=== PATIENT | female | born 1950 | race Caucasian/White ===

== ENCOUNTER 2017-03-25 15:11 | Outpatient (CLI) | payer MEDICAID ==
[2017-03-25 19:24] LABS: BASOPHILS % (AUTO) 0.4 %; EOSINOPHILS % (AUTO) 1.8 %; HCT - HEMATOCRIT 43.3 % (37.0-47.0); HGB - HEMOGLOBIN 14.6 g/dL (12.0-16.0); LYMPHOCYTES % (AUTO) 41.2 %; MEAN CORPUSCULAR HEMOGLOBIN 32.1 pg (27.0-31.0); MEAN CORPUSCULAR HGB CONC 33.7 g/dL (32.0-36.0); MEAN CORPUSCULAR VOLUME 95.4 fL (81.0-99.0); MEAN PLATELET VOLUME 9.5 fL (7.9-10.8); MONOCYTES % (AUTO) 6.2 %; NEUTROPHILS % (AUTO) 50.4 %; RED BLOOD COUNT 4.55 10^6/uL (4.20-5.40); UNCORRECTED WHITE BLOOD COUNT 8.3 x10^3/uL; WHITE BLOOD COUNT 8.3 x10^3/uL (4.8-10.8)
[2017-03-25 19:35] LABS: BAND NEUTROPHILS % (MANUAL) 0 %
[2017-03-25 19:46] LABS: ALBUMIN/GLOBULIN RATIO 1.5 (1.0-2.2); BILIRUBIN,TOTAL 0.5 mg/dL (0.2-1.0); BUN - BLOOD UREA NITROGEN 15 mg/dL (6-20); CALCIUM 9.5 mg/dL (8.5-10.3); CARBON DIOXIDE - CO2 23 mmol/L (21-32); CHLORIDE 104 mmol/L (101-111); CREATININE 0.7 mg/dL (0.4-1.0); GFR - MDRD 84 (>89); GLUCOSE 137 mg/dL (70-100); IRON 69 ug/dL (28-170); POTASSIUM 3.8 mmol/L (3.5-5.0); SODIUM 137 mmol/L (135-145); TOTAL IRON BINDING CAPACITY 302 ug/dL (250-450); TOTAL PROTEIN 7.4 g/dL (6.7-8.2); TRANSFERRIN 216 mg/dL (192-382)
[2017-03-25 19:50] LABS: THYROID STIMULATING HORMONE 1.56 uIU/mL (0.34-5.60)
[2017-03-25 20:07] LABS: BASOPHILS % (MANUAL) 1 %; EOSINOPHILS % (MANUAL) 1 %; LYMPHOCYTES % (MANUAL) 38 %; NEUTROPHILS % (MANUAL) 51 %; NP AUTO DIFFERENTIAL? YES; NP MAN DIFFERENTIAL? NO; PLATELET ESTIMATE, MANUAL NORMAL (130-450,000) (NORMAL); PLATELET MORPHOLOGY NORMAL APPEARANCE (NORMAL); TOTAL CELLS COUNTED 100
== END 2017-03-25 15:12 | disposition home or self-care (01) ==
LOC: LAB.S 15:11
PROVIDERS: ATTEND Nurse Practitioner Family
DX: R53.83 Other fatigue (principal)
CPT/HCPCS: 36415; 80053; 82607; 83540; 84443; 84466; 85025

== ENCOUNTER 2017-10-09 08:00 | Outpatient (CLI) | payer MEDICARE, MEDICAID | END 2017-10-09 08:01 | disposition home or self-care (01) | LOC: LAB.R 08:00 | PROVIDERS: ATTEND Nurse Practitioner Family | DX: Z79.891 Long term (current) use of opiate analgesic (principal) | CPT/HCPCS: 80307; 81599; G0480; 80349; 80354; 80361; 80362; 80365 ==

== ENCOUNTER 2018-01-24 11:04 | Outpatient (CLI) | payer MEDICARE, MEDICAID ==
--- NOTE | 2018-01-24 12:36 | XRAY Report ---
Procedure Date: 01/24/2018 Accession Number: [id number] / [id number] Procedure: XRS - Chest 2 View X-Ray CPT Code: 53421 FULL RESULT: EXAM: Chest 2 View X-Ray DATE: 01/24/2018 11:29 AM CLINICAL HISTORY: COPD, ACUTE EXACERBATION COMPARISON: Chest CT 08/27/2014. TECHNIQUE: 2 views. FINDINGS: Lungs/Pleura: No focal opacities evident. No pneumothorax or pleural effusion. Lung volumes are similar to prior, top normal. Mediastinum: Heart and mediastinal contours are unremarkable. Other: None. IMPRESSION: Relatively high lung volumes in keeping with known emphysema, otherwise normal 2-view chest radiography. [facility]
== END 2018-01-24 11:05 | disposition home or self-care (01) ==
LOC: DI.S 11:04
PROVIDERS: ATTEND Nurse Practitioner Family
DX: J43.9 Emphysema, unspecified (principal)
CPT/HCPCS: 71046

== ENCOUNTER 2018-10-28 14:04 | Outpatient (CLI) | payer MEDICARE, MEDICAID ==
--- NOTE | 2018-10-29 10:42 | XRAY Report ---
Reason: PAIN AND EDEMA 2-3 MT'S LEFT FOOT Procedure Date: 10/28/2018 Accession Number: [id number] / [id number] Procedure: XR - Foot 3 View LT CPT Code: FULL RESULT: EXAM: LEFT FOOT RADIOGRAPHY EXAM DATE: 10/28/2018 02:22 PM. CLINICAL HISTORY: Pain and edema 2-3 metatarsals left foot. COMPARISON: None. TECHNIQUE: 3 views. FINDINGS: Bones: Mild inferior calcaneal spurring. There is an regularity over the medial sesamoid, region of the ball of the foot, possible sesamoid fracture. Joints: Normal. No subluxations. Soft Tissues: Normal. No soft tissue swelling. IMPRESSION: Question sesamoid fracture. RAD[facility]
== END 2018-10-28 14:05 | disposition home or self-care (01) ==
LOC: DI 14:04
PROVIDERS: ATTEND Podiatrist
DX: M79.672 Pain in left foot (principal)

== ENCOUNTER 2019-03-16 09:36 | Outpatient (CLI) | payer MEDICARE, MEDICAID ==
[2019-03-16 17:09] LABS: BASOPHILS # (AUTO) 0.1 10^3/uL (0.0-0.1); BASOPHILS % (AUTO) 0.7 %; EOSINOPHILS # (AUTO) 0.2 10^3/uL (0.0-0.7); EOSINOPHILS % (AUTO) 3.4 %; LYMPHOCYTES # (AUTO) 2.6 10^3/uL (1.5-3.5); MEAN CORPUSCULAR HGB CONC 33.2 g/dL (32.0-36.0); MEAN CORPUSCULAR VOLUME 96.3 fL (81.0-99.0); MEAN PLATELET VOLUME 11.8 fL (7.9-10.8); MONOCYTES # (AUTO) 0.6 10^3/uL (0.0-1.0); MONOCYTES % (AUTO) 8.1 %; NEUTROPHILS # (AUTO) 3.4 10^3/uL (1.5-6.6); NEUTROPHILS % (AUTO) 49.4 %; PLT - PLATELET COUNT 216 10^3/uL (130-450); RED BLOOD COUNT 4.38 10^6/uL (4.20-5.40); RED CELL DISTRIBUTION WIDTH 13.4 % (12.0-15.0); WHITE BLOOD COUNT 6.8 x10^3/uL (4.8-10.8)
[2019-03-16 17:34] LABS: ALBUMIN 4.4 g/dL (3.2-5.5); ALBUMIN/GLOBULIN RATIO 1.6 (1.0-2.2); ALKALINE PHOSPHATASE 66 IU/L (42-121); ALT ALANINE AMINOTRANSFERASE 25 IU/L (10-60); AST ASPARTATE AMINOTRANSFERASE 18 IU/L (10-42); BILIRUBIN,TOTAL 0.7 mg/dL (0.2-1.0); BUN - BLOOD UREA NITROGEN 12 mg/dL (6-20); CALCIUM 9.5 mg/dL (8.5-10.3); CARBON DIOXIDE - CO2 26 mmol/L (21-32); CHLORIDE 109 mmol/L (101-111); CHOL/HDL RATIO 3.8 (<4.4); CHOLESTEROL 183 mg/dL; CREATININE 0.6 mg/dL (0.4-1.0); GFR - MDRD 100 (>89); GLUCOSE 127 mg/dL (70-100); HDL CHOLESTEROL 48 mg/dL; LDL CHOLESTEROL,CALCULATED 118 mg/dL; LDL/HDL RATIO 2.5 (<4.4); SODIUM 141 mmol/L (135-145); TOTAL PROTEIN 7.1 g/dL (6.7-8.2); VLDL CHOLESTEROL 17 mg/dL
== END 2019-03-16 09:37 | disposition home or self-care (01) ==
LOC: LAB.S 09:36
PROVIDERS: ATTEND Physician Assistant Medical
DX: R09.02 Hypoxemia (principal); E78.5 Hyperlipidemia, unspecified; R53.83 Other fatigue
CPT/HCPCS: 36415; 80053; 80061; 83721; 84443; 85025

== ENCOUNTER 2019-05-21 12:53 | Outpatient (CLI) | payer MEDICARE, MEDICAID ==
[2019-05-21 15:13] VITALS: BP 164/90
--- NOTE | 2019-05-21 15:13 | SLEEP CARE CONSULTATION ---
Information from patient questionnaire entered by Gilma Masterson. I have reviewed and concur with the information entered by Gilma Masterson. This document represents the service I personally performed and the decisions made by me, Devorah Rodríguez, RN, MSN, CERTIFIED ADAPTED PHYSICAL EDUCATOR. History of Present Illness Reason for Visit: New patient Chief Complaint: reports: Unrefreshed sleep, Snoring, Observed pauses in breathing, Fatigue, Frequent awakenings at night, Other (Overnight pulse oximetry showed 50 minutes of [id number] under 88% / she wore oxygen at night for a while but did not qualify for insurance coverage) Duration of Symptoms: At least 5 years and has progressively gotten worse Usual bedtime: 11 pm Time it takes to fall asleep: 1 hour Snores at night: Yes (loudly) Observed to quit breathing while asleep: Yes Sleeps alone due to snoring: No Number of times waking at night: 8 Reasons for waking at night: reports: Gasping for air, Pain, Bathroom, Other (acid reflex , shortness of breath from her COPD) Toss, Turn, or Twitch while sleeping: Yes Recalls having dreams: Yes Usually gets out of bed at: 8-9 am Feels refreshed in the morning: No Morning headache: No Sleepy or fatigued during the day: Yes Ever fallen asleep while driving: No Takes day naps: Yes (2-3 times a week for 1 -1.5 hours - about 1pm) Dreams during day naps: Yes Prior sleep studies: No - Parasomnia Symptoms Ever been unable to move upon waking from sleep: No Walks in sleep: No Talks in sleep: Yes Ever acted out dreams in sleep: No Ever felt weak in the knees when startled or emotional: No Bothered by creepy, crawly, restless sensations in legs: No Problems with memory or concentration: Yes Subjective Initial [place] Sleepiness Scale score: 16 Past Medical History Past Medical History: reports: Hypertension, Dysphagia, Arthritis, Asthma, Emphysema, GERD, Other (Back and hip pain with sciatica and degenerative joint disease. ) Social History The patient's occupation is retired. Patient is and lives in [place]. Have you smoked in the past 12 months: No Cigarettes per day (20/pack): 30 Years of smokin Quit date: 1 year ago Smoking Pack Years: 60.0 Alcohol use: Yes Alcohol amount and frequency: 1-2 drinks every 3 months or so Caffeine use: Yes Caffeine amount and frequency: 2 12 ounce Cokes or Teas Family History Family history of sleep disordered breathing: Yes Family Hx Sleep Apnea: Father: Snoring Allergies and Home Medications Known drug allergies: No Home medication list reviewed: Yes Allergy and home medication list: Potassium CL ER 20meq tid Nifedipine 60mg daily HCTZ 12.5mg daily Ventolin Inhaler rescue inhaler Breo Inhaler 100mg / 25mcg 1 puff daily Albuterol Nebulizer 4 times a day ( every 4-6 hours) but generally only 3 times Vitamin [id number] mg daily Hydrocodone 7.5mg bid prn Review of Systems Weight gain over past 5 years: 40 Weight loss over past 5 years: 40 Cardiovascular: reports: high blood pressure, have to sleep sitting up (2 - 3 pillows in bed) Respiratory: reports: shortness of breath (most of time - partially relieved with nebulizer ), wheeze (most of time), sputum production (daily ), chronic cough Gastrointestinal: reports: heartburn (occasionally and relieved with Tums ) Urinary: reports: incontinence (stress), frequency Neurological: reports: gait or balance problems (back pain / unknown reason 5 years ) Ear/Nose/Throat: reports: nasal congestion (chronic), dry mouth/throat (mostly at night), hoarseness (intermittent ), tonsillectomy, wisdom teeth removed Endocrine: reports: sluggishness, increased urination, unexplained weakness Musculoskeletal: reports: joint pain, back pain, muscle pain or cramping, mobility problems (back / sciatica ) Immunologic: reports: sneezing (chronic ) Physical Exam Blood Pressure: 164/90 Cuff size: long Heart Rate: 70 O2 Saturation: 98 Height: 5 ft 4.75 in Weight: 280 lb Body Mass Index: 46.9 BMI Classification: Obesity Class 3 Neck circumference: 16.5 HEENT: No craniofacial malformation Nostrils: partially obstructed Turbinates: swollen Septum: deviated right Mouth and throat: narrow oropharynx Soft palate: long Hard palate: normal Uvula: edematous Uvula visualization: 25% Mallampati Class III Tongue: enlarged in size with teeth patrick on lateral edges Tonsils: absent bilaterally Chin and jaw: normal size and position Neck: normal w/o lymphadenopathy or thyromegaly Heart: regular rate and rhythm, irregular rhythm Lungs: wheeze (expiratory wheeze all 4 quadrants) Abdomen: soft, non-tender Extremities: 1+ edema (ankle) Neurologic: no focal deficits Impression and Plan 1. Suspected Obstructive Sleep Apnea-Hypopnea Syndrome, as suggested by a history of loud and irregular snoring, observed cessation of breath while asleep, gasping or choking in sleep, frequent awakening during the night, unrefreshed sleep, cognitive impairment, and excessive daytime sleepiness. Patient was also noted to have nocturnal hypoxia with an overnight pulse oximetry showing oxygen saturation of below 88% for about 50 minutes. Apnea could be a cause of her hypoxemia. Narrow oropharynx and obesity are common predisposing factors for obstructive sleep apnea-hypopnea syndrome. Essential hypertension can be caused by untreated apnea. In addition, nocturnal reflux can be exacerbated by untreated apnea. I recommend proceeding to polysomnography to confirm the diagnosis and to assess severity. If the patient has significant sleep disordered breathing, a manual CPAP titration study will also be performed to find the optimal treatment pressure. I informed the patient of what the sleep studies involve and after some discussion, obtained agreement to proceed. I informed her that if she has significant apnea, a split polysomnography will be performed. I explained that if her hypoxia is not corrected by apnea treatment then she may require oxygen supplementation. A manual titration study will determine that need. The pathophysiology of obstructive sleep apnea- hypopnea syndrome was discussed with the patient and health risks of cardiovascular and cerebrovascular disease if not treated. AAS brochure for obstructive sleep apnea-hypopnea syndrome given and reviewed. Risks of drowsy driving discussed in detail and patient advised to avoid long distance driving and to harness puller at the first sign of drowsiness. Patient agreed to plan. 2. Elevated blood pressure, Patient monitors at home- generally 140-130 / 80 -84 but has been elevated intermittently such as today in a new office visit. Advised to retake her blood pressure when home and contact her PCP if continues to be elevated for further evaluation and possible medication adjustment. Urgent guidelines reviewed for follow up if systolic 180 or above and diastolic 100 or above. Patient voiced understanding and agreed with plan. 3. intermittent feeling of imbalance and states she is careful in movements. This has been going of for about 5 years. Patient has not discussed her symptoms with any of her providers and was encouraged to do so for further evaluation to determine cause as it could be related to other medical conditions. Patient agreed with plan. * Schedule split polysomnography / manual CPAP titration study if meets protocol otherwise just polysomnography. * Avoid long distance driving or driving when feeling sleepy. * Avoid alcohol, sedative and muscle relaxant around bedtime. * Attempt to lose weight. * Review instructions provided by trained office staff on how to prepare for the sleep study. * Return for follow-up after sleep study completed to review results and initiate treatment if indicated. I spent 100% of this 45 minute visit face to face with the patient with greater than 50% of this was spent time counseling the patient and coordination of care.
== END 2019-05-21 12:54 | disposition home or self-care (01) ==
LOC: SC 12:53
PROVIDERS: ATTEND Nurse Practitioner Family
DX: G47.10 Hypersomnia, unspecified (principal); R06.81 Apnea, not elsewhere classified; G47.8 Other sleep disorders; R41.89 Other symptoms and signs involving cognitive functions and awareness; R09.02 Hypoxemia; R06.83 Snoring
CPT/HCPCS: 99204; G0463; 99212

== ENCOUNTER 2019-06-15 19:29 | Outpatient (CLI) | payer MEDICARE, MEDICAID | END 2019-06-15 19:30 | disposition home or self-care (01) | LOC: SC 19:29 | PROVIDERS: ATTEND Internal Medicine Pulmonary Disease | DX: G47.33 Obstructive sleep apnea (adult) (pediatric) (principal); G47.61 Periodic limb movement disorder; E66.01 Morbid (severe) obesity due to excess calories; Z68.42 Body mass index [BMI] 45.0-49.9, adult | CPT/HCPCS: 95810 ==

== ENCOUNTER 2019-07-14 15:08 | Outpatient (CLI) | payer MEDICARE, MEDICAID ==
[2019-07-14 16:15] VITALS: BP 180/100
--- NOTE | 2019-07-14 16:15 | SLEEP CARE CONSULTATION ---
Information from patient questionnaire entered by Gilma Masterson. I have reviewed and concur with the information entered by Gilma Masterson. This document represents the service I personally performed and the decisions made by me, Devorah Rdoríguez, RN, MSN, PLATE PAINTER APPRENTICE. History of Present Illness Initial [place] Sleepiness Scale score: 16 Current [place] Sleepiness Scale score: 7 Additional HPI information: NANI MELO returns for follow up and results of the recently performed polysomnography. I explained the pathophysiology behind obstructive sleep apnea. We then spent quite a bit of time discussing different treatment options. For mild obstructive sleep apnea, surgery and oral appliance are alternatives to nasal CPAP therapy but in moderate or severe cases, nasal CPAP is the most effective and reliable treatment. I reviewed the impact of weight changes on sleep apnea and strongly recommended losing weight. After some discussion, the patient opted to go with the nasal CPAP therapy. Nasal autoCPAP set at [id number] will be ordered with rationale explained. A manual titration study will be ordered if unable to find optimal pressure with office adjustments to find optimal treatment mode and setting. An urgent set up will be ordered due to apnea severity and moderate hypoxia. I explained how CPAP machine works with sample devices RespirUrban Airship Dreamstation and ResN-of-One [id number] and what to expect when using the machine. Using CPAP every night in order to get used to it was emphasized. Patient advised to put CPAP mask on before getting into bed so as not to fall asleep without CPAP. To assist acclimation to CPAP use, it could also be used for a short time during day while reading or watching TV. The patient was instructed to call the CPAP supplier to discuss any mechanical problem that may occur. If the mask given is uncomfortable or is difficult to keep on through the night even with adjustment, contact the CPAP supplier as many will replace with another mask style if notified before 30 days. If snoring or perceives is not getting enough air or too much air from the machine, notify this office. [facility] patient education PAP tips and given to patient. Patient counseled not drink alcohol less than 4 hours before bedtime as it can increase snoring and apnea. Patient was cautioned about risks of drowsy driving until sleepiness symptoms resolve. Patient denies drowsy driving. [facility] patient education on snoring and sleep apnea given and reviewed. Sleep Study - Results Polysomnography/Home Sleep Study results: The quality of the study is good. The patient had reduced sleep efficiency due to sleep onset insomnia and two prolonged awakenings during the night. The sleep architecture was abnormal for sleep fragmentation and reduced amount of time spent in REM and slow wave sleep (N3). Respiratory monitoring showed very severe obstructive sleep apnea-hypopnea (AHI = 78.4) associated with frequent arousals, oxyhemoglobin desaturation and moderate hypoxia (gordo oxygen saturation of 74%). Baseline oxygen saturation was normal. The respiratory events occurred independently of sleep stage and body position (supine AHI = 87.8; non-supine = 44.29). Snore was loud in intensity. There was mild periodic leg movement of sleep not contributing to the sleep fragmentation. Cardiac rhythm was normal sinus rhythm with occasional premature ventricular contractions. No abnormal behavior (parasomnia) observed during the night. Allergies and Home Medications Known drug allergies: No Home medication list reviewed: Yes (no changes from initial visit) Review of Systems Review of systems same as previous: Yes (followed up with PCP re blood pressure as advised) Physical Exam Blood Pressure: 180/100 (both arms, 170/90 retaken at end of visit at wrist ) Cuff size: long (needs longer cuff for better fit) Heart Rate: 82 O2 Saturation: 97 Height: 5 ft 4.75 in Weight: 284 lb 9.6 oz Weight change since last visit: gained 5 pounds Body Mass Index: 47.7 BMI Classification: Obesity Class 3 Impression and Plan 1. Obstructive Sleep Apnea-Hypopnea Syndrome, very severe, with lowest oxygen saturation of 74%. Obviously this is the cause of the patients symptoms of unrefreshed sleep, and excessive daytime sleepiness. Positive pressure therapy could benefit her hypertension and asthma. As mentioned above, the patient will be started on nasal autoCPAP therapy with pressure set at 4-15 cmH2O. A manual titration study will be completed if unable to find optimal treatment pressure with office adjustments. Compliance guidelines also reviewed. A copy of compliance guidelines will be given for reference at check out. Because the apnea is more severe supine, I instructed to avoid sleeping supine using pillow positioning until able to start CPAP use. 2. Elevated blood pressure. As noted at beginning of visit blood pressure reading 180/100 both arms. Cuff length long but could be longer for better fit. Patient states she had a level 4 of 10 pain of back, hip and legs. Patient is monitoring at home as advised and followed up with her PCP. At home, blood pressure running 152/80-86. At end of visit, Blood pressure retaken and 170/90 taken at wrist for better fitting cuff. Patient advised to retake at home and contact PCP if continues to be elevated. Patient again reviewed guidelines for u rgent follow up. 911 card guidelines given. Patient agreed with plan. * Nasal auto CPAP therapy, pressure at 4-15 cm H2O. * Attempt to lose weight. * Avoid alcohol consumption near bedtime. * Avoid supine sleep until using CPAP. * Follow up with PCP re elevated blood pressure as discussed. * The patient is again cautioned about driving until sleepiness completely resolves. * Return one month after CPAP obtained. I will assess response to therapy and compliance at that time. Time Spent with Patient (minutes): 40 I spent 100% of this visit face to face with the patient with greater than 50% of this was spent time counseling the patient and coordination of care.
== END 2019-07-14 15:09 | disposition home or self-care (01) ==
LOC: SC 15:08
PROVIDERS: ATTEND Nurse Practitioner Family
DX: G47.33 Obstructive sleep apnea (adult) (pediatric) (principal); R03.0 Elevated blood-pressure reading, without diagnosis of hypertension; E66.9 Obesity, unspecified; Z68.42 Body mass index [BMI] 45.0-49.9, adult
CPT/HCPCS: 99215; G0463; 99212

== ENCOUNTER 2019-10-22 16:31 | Outpatient (CLI) | payer MEDICARE, MEDICAID ==
--- NOTE | 2019-10-22 15:29 | SLEEP CARE CONSULTATION ---
Information from patient questionnaire entered by Margret Gonzalez. I have reviewed and concur with the information entered by Margret Gonzalez. This document represents the service I personally performed and the decisions made by me, Devorah Rodríguez, RN, MSN, DIRECTOR OF [facility]. History of Present Illness Service Date and Time: 10/22/2019 1631 Previous diagnosis: Very Severe, Obstructive Sleep Apnea-Hypopnea Syndrome AHI: 78.4 Reason for follow up: first compliance Equipment type: CPAP Equipment obtained from: [facility] Mask style: Full face Backup mask available: No (keep current mask when replaced for spare ) Last cushion change: not since set up Prior sleep studies: Yes Type of Sleep Study: Polysomnography CPAP Compliance Data - Data Reviewed with Patient Average duration of nightly device use: 5H 49M Compliance rate %: 70 Current pressure setting (cmH2O): 4-15 Humidity settin Heated hose settin Average residual AHI: 5.3 Central apnea: 1.0 Obstructive apnea: 1.7 Hypopnea: 3.6 Average large leak: 1M 3S Subjective Missed days of use due to: reports: other (when COPD exacerbates) Patient concerns: reports: mask leak noise (occasionally). denies: aerophagia, mask discomfort, air blowing in eyes, condensation in mask/hose, nasal congestion, dry mouth, nose, throat, epistaxis, other Observed to snore while using device: Yes (mild) Current pressure setting perceived as: comfortable On therapy, patient: reports: sleeping better (able sleep longer periods ), awakening more refreshed, being more awake and alert during the day, more rested overall. denies: drowsiness while driving, other Initial [place] Sleepiness Scale score: 16 Physical Exam Height: 5 ft 4.75 in Impression and Plan 1. Obstructive Sleep Apnea-Hypopnea Syndrome, very severe, with good treatment compliance and slightly elevated residual AHI apnea control. On CPAP therapy, the patient has better sleep quality and is more rested overall. Missed days of use are due to exacerbation of COPD and she reports she is contacting her PCP for treatment as indicated. The patients pressure will be changed to autoCPAP 12-16 cmH20 For elevation of residual AHI. Patient advised to contact me if pressure change is uncomfortable so that it can be adjusted. Goals for apnea control discussed. I will also have her DME remind her of use of ramp feature. To reduce condensation, she is to increase the heated hose. If further problems, she can contact Lauren PATTERSON. Patient's apnea severity and rationale for treatment to reduce apnea, improve sleep quality and reduce cardiovascular and cerebrovascular events was reviewed. I also reviewed the benefit of regularly changing her mask cushion to maintain fit and comfort of mask. * * Change CPAP pressure to 12-16 cmH2O * instruct in use of ramp feature * Notify me if snoring with mask or feeling that the pressure is too much or too little * Adjust heated hose for condensation * Call this office if any problems using CPAP * Return for follow up in 1-2 months , or sooner if concerns arise Visit Type: Telehealth Phone (to minimize the risk of COVID -19 exposure, the patient has agreed to telehealth visit and to bill insurance.) Patient agrees and consents to this telehealth visit type: Yes Time Spent with Patient (minutes): 10 Provider Statement: I spent 100% of the Telehealth Phone Call with the patient with greater than 50% spent counseling the patient and coordination of care.
== END 2019-10-22 16:32 | disposition home or self-care (01) ==
LOC: SC 16:31
PROVIDERS: ATTEND Nurse Practitioner Family
DX: G47.33 Obstructive sleep apnea (adult) (pediatric) (principal)

== ENCOUNTER 2020-01-04 15:03 | Emergency (ER) | payer MEDICARE, MEDICAID ==
--- NOTE | 2020-01-04 15:47 | XRAY Report ---
PROCEDURE: Chest 2 View X-Ray INDICATIONS: short of breath TECHNIQUE: 2 view(s) of the chest. COMPARISON: None. FINDINGS: Surgical changes and devices: None. Lungs and pleura: No pleural effusions or pneumothorax. Lungs are clear. Mediastinum: Mediastinal contours are normal. Heart size is normal. Bones and chest wall: No suspicious bony abnormalities. Soft tissues appear unremarkable. IMPRESSION: No acute disease Reviewed by: Juan Nava MD on 01/04/2020 3:46 PM PDT Approved by: Juan Nava MD on 01/04/2020 3:46 PM PDT Station ID: [id number]
[2020-01-04 15:53] VITALS: BP 134/97
[2020-01-04] MEDS ORDERED: IPRATROPIUM/ALBUTEROL 3 ML NEB INH STA (15:59)
[2020-01-04] MEDS ORDERED: predniSONE 20 MG TABLET PO STA (15:59)
[2020-01-04] MEDS ORDERED: ALBUTEROL NEB 2.5 MG/3 ML INH STA (15:59)
--- NOTE | 2020-01-04 16:00 | ED Physician Documentation ---
PD HPI DYSPNEA - Stated complaint Stated Complaint: SOA - Chief complaint Chief Complaint: Resp - History obtained from History obtained from: Patient - Additional information Additional information: 69-year-old woman with emphysema presents with what she feels like is 1 of her flares of same. She has been sick for about 8 days with an increasingly productive cough and shortness of breath. She is been using her neb 4 times a day and just finished a course of steroids at a dose of 40 mg a day. Was referred from her doctor's office for concern for pneumonia. Review of Systems Constitutional: reports: Reviewed and negative Throat: reports: Reviewed and negative Cardiac: reports: Reviewed and negative Respiratory: reports: Dyspnea, Cough PD PAST MEDICAL HISTORY - Present Medications Home Medications: Ambulatory Orders Medication Instructions Recorded Confirmed Albuterol 1 neb IN Q4HR PRN 01/04/20 01/04/20 Albuterol Sulf [Ventolin Hfa 2 puffs INH Q4HR PRN 01/04/20 01/04/20 Inhaler] Amoxicillin 500 mg PO TID #30 capsule 01/04/20 Cholecalciferol (Vitamin D3) 1,000 unit PO DAILY 01/04/20 01/04/20 [Vitamin D3] Fluticasone/Vilanterol [Breo 1 each IH DAILY 01/04/20 01/04/20 Ellipta 100-25 Mcg INH] Hydrochlorothiazide 12.5 mg ORAL DAILY 01/04/20 01/04/20 Hydrocodone/Acetaminophen [Sewaren 1 each PO BID 01/04/20 01/04/20 7.5-325 Tablet] NIFEdipine [Nifedipine ER] 60 mg PO DAILY 01/04/20 01/04/20 Potassium Chloride [K-Dur] 20 meq PO TID 01/04/20 01/04/20 predniSONE [Deltasone] 20 mg PO [id number] #21 tab 01/04/20 - Allergies Allergies/Adverse Reactions: Allergies Allergy/AdvReac Type Severity Reaction Status Date / Time No Known Drug Allergies Allergy Verified 01/04/20 15:19 PD ED PE NORMAL - Vitals Vital signs reviewed: Yes - General General: Alert and oriented X 3, No acute distress - Cardiac Cardiac: RRR, No murmur - Respiratory Respiratory: Other (Rhonchorous and wheezy throughout, speaking in full sentences but she is minimally labored.) - Abdomen Abdomen: Non tender - Extremities Extremities: No edema, No calf tenderness / cord - Neuro Neuro: Alert and oriented X 3, Normal speech Results - Vitals Vitals: Vital Signs - 24 hr 01/04/20 01/04/20 01/04/20 15:15 15:52 16:14 Temperature 36.6 C 36.8 C Heart Rate 88 92 88 Respiratory 26 H 24 16 Rate Blood Pressure 154/86 H 134/97 H O2 Saturation 96 97 Oxygen O2 Source Room air - Rads (name of study) 1v chest Radiology: EMP read contemporaneously (nad) PD MEDICAL DECISION MAKING - ED course ED course: 69-year-old woman presents with COPD exacerbation, ACS and PE are considered but given the clinical findings very low suspicion for same. Not much change after triple neb here but remained nonlabored we will up her steroids and start some antibiotics for the productive cough. She did not want to be admitted. Departure - Departure Disposition: Home, Self Care Clinical Impression: Moderate COPD (chronic obstructive pulmonary disease) Condition: Good Record reviewed to determine appropriate education?: Yes Instructions: COPD Dc Prescriptions: Amoxicillin 500 mg PO TID #30 capsule predniSONE [Deltasone] 20 mg PO [id number] #21 tab Comments: Prescriptions were sent electronically to [facility] in [place]. Return for new or worsening symptoms. Continue routine meds at home. Follow-up with your doctor midweek for recheck.
[2020-01-04] MEDS ORDERED: AMOXICILLIN 250 MG CAPSULE PO STA (16:56)
== END 2020-01-04 17:04 | disposition home or self-care (01) ==
LOC: ED 15:03
DX: J43.9 Emphysema, unspecified (principal)
CPT/HCPCS: 71046; 94640; 99283; 99284; A9270; J7512

== ENCOUNTER 2020-01-13 12:32 | Outpatient (CLI) | payer MEDICARE, MEDICAID ==
--- NOTE | 2020-01-13 13:35 | SLEEP CARE CONSULTATION ---
Information from patient questionnaire entered by Margret Gonzalez. I have reviewed and concur with the information entered by Margret Gonzalez. This document represents the service I personally performed and the decisions made by me, Devorah Rodríguez, RN, MSN, ELECTRICAL AND INSTRUMENT TECHNICIAN. History of Present Illness Service Date and Time: 01/13/2020 1232 Previous diagnosis: Very Severe, Obstructive Sleep Apnea-Hypopnea Syndrome AHI: 78.4 Reason for follow up: other (2 month) Equipment type: CPAP Equipment obtained from: [facility] (getting supplies as needed) Mask style: Full face Backup mask available: No (keep current mask when replaced for a spare) Last cushion change: 2 weeks Prior sleep studies: Yes Year and Where: [facility] 2018 Type of Sleep Study: Polysomnography CPAP Compliance Data - Data Reviewed with Patient Average duration of nightly device use: 5h 46m Compliance rate %: 66.7 (30 days is 56.7%) Current pressure setting (cmH2O): 12-16 Humidity settin Heated hose settin Average residual AHI: 3.4 Average large leak: 27s Subjective Missed days of use due to: reports: illness (exacerbation of COPD ) Patient concerns: reports: aerophagia (no distention but waking to burping about 0-1 times a week since pressure change), mask leak noise (most nights), condensation in mask/hose (small amount of ? drool most mornings ), nasal congestion (chronic ), dry mouth, nose, throat (moderate to severe dry mouth and throat every night). denies: mask discomfort, air blowing in eyes, epistaxis Observed to snore while using device: No Current pressure setting perceived as: comfortable On therapy, patient: reports: sleeping better. denies: drowsiness while driving Initial [place] Sleepiness Scale score: 16 Allergies and Home Medications Known drug allergies: No Home medication list reviewed: No (Prednisone and amoxicillin added for 10 days) Review of Systems Review of systems same as previous: No Physical Exam Blood Pressure: 142/90 Cuff size: large Heart Rate: 72 O2 Saturation: 97 Height: 5 ft 4.75 in Weight: 281 lb (gained weight with prednisone course) Weight change since last visit: gained 7 pounds Body Mass Index: 47.1 BMI Classification: Morbidly Obese Impression and Plan 1. Obstructive Sleep Apnea-Hypopnea Syndrome, very severe, with fair treatment compliance and good apnea control. Compliance fell due to recent exacerbation of her COPD making it difficult to use her CPAP. On CPAP therapy, the patient has better sleep quality. To reduce symptoms of aerophagia, the CPAP pressure will be reduced to 12-14 cmH2O. Patient advised to contact me if this does not reduce symptoms or if pressure change uncomfortable. Oral dryness can cause drooling and can be reduced by adjusting humidity setting higher or heated hose lower or by adjusting both settings. I advised her to start with higher humidity to 4 and lower the heated hose to 2. Verbal instructions given on how to change humidity and heated hose settings with rationale explaining why to change. Patient advised that chronic oral dryness can affect dental health and advised to follow up with dentist. In addition, there are oral dryness products that can be used to reduce dryness. Patient to discuss best option with dentist. Mask leaks can be reduced by adjusting mask headgear slightly. She is already washing mask daily and changing cushions regularly. Nasal congestion is generally no problem per patient. If worse, it can be reduced with increasing the CPAP humidity as shown on sample device. The heated hose can be adjusted higher if condensation with higher humidity setting. Saline nasal spray can also be used prior to CPAP to clear nasal secretions and wash off any nasal allergens to facilitate nasal breathing. In addition, a steamy shower before bed will often assist nasal drainage. Patient has gained weight with recent course of prednisone, she plans on losing weight after course completed. Patient's apnea severity and rationale for treatment to reduce apnea, improve sleep quality and reduce cardiovascular and cerebrovascular events was reviewed. Patient asked about her oxygen saturation as was low on her sleep study. I later reviewed her sleep study as my computer froze at end of this visit. It showed she had moderate hypoxia but only with apnea, her baseline was in normal range. I will contact patient and inform. * * Change auto CPAP pressure to 10-14 cmH2O * Notify me if snoring with mask or feeling that the pressure is too much or too little * Implement methods to reduce oral dryness and mask leaks. * Attempt to lose weight * Call this office if any problems using CPAP * Return for follow up in 1-2 months , or sooner if concerns arise Visit Type: In Office Provider Statement: I spent 100% of the Face to Face Visit with the patient with greater than 50% spent counseling the patient and coordination of care.
[2020-01-13 13:59] VITALS: BP 142/90
== END 2020-01-13 12:33 | disposition home or self-care (01) ==
LOC: SC 12:32
PROVIDERS: ATTEND Nurse Practitioner Family
DX: G47.33 Obstructive sleep apnea (adult) (pediatric) (principal); E66.01 Morbid (severe) obesity due to excess calories; Z68.42 Body mass index [BMI] 45.0-49.9, adult
CPT/HCPCS: 99214; G0463; 99212

== ENCOUNTER 2020-03-31 13:14 | Outpatient (CLI) | payer MEDICARE, MEDICAID ==
[2020-03-31 14:25] VITALS: BP 140/90
--- NOTE | 2020-03-31 14:25 | SLEEP CARE CONSULTATION ---
Information from patient questionnaire entered by Gilma Masterson. I have reviewed and concur with the information entered by Gilma Masterson. This document represents the service I personally performed and the decisions made by me, Devorah Rodríguez, RN, MSN, BUILD AND RELEASE MANAGER. History of Present Illness Service Date and Time: 03/31/2020 1314 Previous diagnosis: Very Severe, Obstructive Sleep Apnea-Hypopnea Syndrome AHI: 78.4 (in 2019) Reason for follow up: other (2 month ) Equipment type: CPAP Equipment obtained from: [facility] (getting supplies as needed) Mask style: Full face Backup mask available: Yes (old mask cushion / to save headgear when replaced also as spare) Last cushion change: 2-3 weeks ago Prior sleep studies: Yes Year and Where: 2019 - [facility] Type of Sleep Study: Polysomnography HPI additional information: aerophagia resolved with reduction in CPAP pressure range Drooling is less with change in humidity and heated hose nasal congestion is also better Sleep Study - Results Prior sleep studies: Yes Year and Where: [facility] 2019 CPAP Compliance Data - Data Reviewed with Patient Average duration of nightly device use: 6.95 Compliance rate %: 76.7 Current pressure setting (cmH2O): 10-14 Humidity settin Heated hose settin Average residual AHI: 6.1 Central apnea: 0.1 Obstructive apnea: 3.4 Hypopnea: 2.6 Average large leak: 13 sec Subjective Missed days of use due to: reports: illness (exacerbation of COPD - uses nebulizers / inhalers ) Patient concerns: reports: mask leak noise (occasional ), nasal congestion (minimal), epistaxis. denies: aerophagia, mask discomfort, air blowing in eyes, condensation in mask/hose, dry mouth, nose, throat Observed to snore while using device: No Current pressure setting perceived as: comfortable On therapy, patient: reports: sleeping better, awakening more refreshed, being more awake and alert during the day, more rested overall. denies: drowsiness while driving Initial [place] Sleepiness Scale score: 16 (in 2019) Current [place] Sleepiness Scale score: 3 Allergies and Home Medications Known drug allergies: No Home medication list reviewed: No (Added gabapentin 600mg bid, metacarbol 1550mg tid) Review of Systems Review of systems same as previous: No (excerbation of back pain - referral to pain specialist / accupuncture) Physical Exam Blood Pressure: 140/90 Cuff size: wrist Heart Rate: 54 O2 Saturation: 98 Height: 5 ft 6 in Weight: 286 lb 9.6 oz Body Mass Index: 46.2 BMI Classification: Morbidly Obese Impression and Plan 1. Obstructive Sleep Apnea-Hypopnea Syndrome, very severe , with good treatment compliance and mild elevation of residual AHI. On CPAP therapy, the patient has better sleep quality and is more rested overall. Her aerophagia has resolved with pressure reduction and only mild residual AHI so I will not change pressure further. She has also increased her compliance from 56% to 76% since reduction of pressure. Her drooling is less with adjustment of heated hose and humidity. She was counseled to use her nebulizer as prescribed to reduce incidence of COPD exacerbation and consider pulmonary consult ias advised by PCP so she can reduce missed use of her CPAP since her apnea is so severe. In addition, she is encouraged to discuss a diet consultation with her PCP for weight loss as she reports her weight has increased her back pain and breathing difficulty and her own attempts have not worked. Patient has instead gained weight. Currently patients BMI is 44.2 obesity class. In addition, obesity increases the risk of apnea, CPAP pressure requirements and overall health risks especially cardiovascular and diabetes. The patient's CPAP pressure range should accommodate some weight loss. Symptoms to report for additional pressure adjustment discussed. Patient's apnea severity and rationale for treatment to reduce apnea, improve sleep quality and reduce cardiovascular and cerebrovascular events was reviewed. I also reviewed the benefit of consistent device use of CPAP for hypertension and COPD. * Continue auto CPAP pressure at 10-14 cmH2O * Notify me if snoring with mask or feeling that the pressure is too much or too little * Attempt to lose weight * Follow up with PCP for air brush operator referral * Call this office if any problems using CPAP * Return for follow up in 6 months , or sooner if concerns arise Visit Type: In Office Time Spent with Patient (minutes): 30 Provider Statement: I spent 100% of the Face to Face Visit with the patient with greater than 50% spent counseling the patient and coordination of care.
== END 2020-03-31 13:15 | disposition home or self-care (01) ==
LOC: SC 13:14
PROVIDERS: ATTEND Nurse Practitioner Family
DX: G47.33 Obstructive sleep apnea (adult) (pediatric) (principal); E66.01 Morbid (severe) obesity due to excess calories; Z68.42 Body mass index [BMI] 45.0-49.9, adult
CPT/HCPCS: 99214; G0463; 99212

== ENCOUNTER 2020-04-14 12:35 | Outpatient (CLI) | payer MEDICARE, MEDICAID ==
--- NOTE | 2020-04-14 14:13 | MRI Report ---
PROCEDURE: Lumbar Spine W/O INDICATIONS: LUMBAR BACK PAIN WITH RADICULOPATHY TECHNIQUE: Noncontrast sagittal T1 spin echo and T2 fast echo, sagittal STIR, axial T1 and T2 fast spin echo thr ough the lumbar spine. In cases with scoliosis, additional coronal T2 fast spin echo may be performe d. COMPARISON: None. FINDINGS: Image quality: Excellent. Alignment and Curvature: Straightening of the usual lumbar lordosis. Otherwise normal alignment. Vert ebral body heights maintained. Bone Marrow: Discogenic marrow signal change at the opposing endplates at L1-L2, L2-L3, and L5-S1. Th isidro signal changes are mildly edematous at the L2-L3 level. No suspicious focal marrow signal abnorma lity. Spinal Cord: Normal position and appearance of the conus. Visualized portion of the distal cord is no rmal. Regional Soft Tissues: Prevertebral and paraspinous soft tissues are unremarkable. Partially visualiz ed retroperitoneal visceral structures demonstrate no acute finding. T12-L1: No spinal canal or neural foraminal stenosis. L1-L2: No spinal canal or neural foraminal stenosis. L2-L3: Disc bulge flattens the ventral thecal sac with disc material closely approximating and per haps slightly displacing the descending L3 nerve roots within both subarticular zones. Foraminal comp onents of the disc bulge. Mild neural foraminal stenosis bilaterally. L3-L4: Disc bulge and protrusion flattening the ventral thecal sac without mass effect upon the tra versing L4 nerve roots. Foraminal components of the disc bulge. Mild bilateral neural foraminal steno sis. L4-L5: Residual disc bulge without mass effect on traversing nerve roots or spinal canal stenosis. Fo raminal component to the disc bulge injury to mild left greater than right neural foraminal stenosis. L5-S1: Diffuse disc bulge without mass effect upon the traversing S1 nerve roots. Foraminal compone nts with disc bulge. Moderate bilateral neural foraminal stenosis in conjunction with disc height los s and facet hypertrophy. IMPRESSION: Multilevel multifactorial degenerative changes. Spinal canal stenosis is most pronounced at L2-L3 whe re there is suspected mild mass effect upon the L3 nerve roots. Neural foraminal stenosis is worst at L5-S1 (moderate). Reviewed by: Ramesh Camarillo MD on 04/14/2020 2:12 PM PDT Approved by: Ramesh Camarillo MD on 04/14/2020 2:12 PM PDT Station ID: [id number]
== END 2020-04-14 12:36 | disposition home or self-care (01) ==
LOC: DI 12:35
PROVIDERS: ATTEND Registered Nurse
DX: M51.36 Other intervertebral disc degeneration, lumbar region (principal); M48.061 Spinal stenosis, lumbar region without neurogenic claudication; M51.26 Other intervertebral disc displacement, lumbar region; M51.37 Other intervertebral disc degeneration, lumbosacral region; M48.07 Spinal stenosis, lumbosacral region
CPT/HCPCS: 72148

== ENCOUNTER 2020-09-29 11:08 | Outpatient (CLI) | payer MEDICARE ==
--- NOTE | 2020-09-29 11:41 | SLEEP CARE CONSULTATION ---
Information from patient questionnaire entered by Gilma Masterson. I have reviewed and concur with the information entered by Gilma Masterson. This document represents the service I personally performed and the decisions made by , Yisel To ARNP. History of Present Illness Service Date and Time: 09/29/2020 1108 Previous diagnosis: Very Severe, Obstructive Sleep Apnea-Hypopnea Syndrome AHI: 78.4 (in 2019) Reason for follow up: six month Equipment type: CPAP Equipment obtained from: [facility] (getting supplies as needed) Mask style: Full face Backup mask available: Yes (old mask) Last cushion change: 1 week ago Prior sleep studies: Yes Year and Where: 2019 - [facility] Type of Sleep Study: Polysomnography HPI additional information: NANI MELO was diagnosed to have very severe, AHI 78.4, obstructive sleep apnea-hypopnea syndrome and returned today for CPAP therapy six month follow-up. CPAP Compliance Data - Data Reviewed with Patient Average duration of nightly device use: 6 hr 46 min Compliance rate %: 66.1 (180 days) Current pressure setting (cmH2O): 10-14 Humidity settin Heated hose settin Average residual AHI: 3.1 Average large leak: 1 min 14 sec Subjective Missed days of use due to: reports: mask issues, illness (emphysema, coughing fits) Patient concerns: denies: aerophagia, mask discomfort, air blowing in eyes, mask leak noise, condensation in mask/hose, nasal congestion, dry mouth, nose, throat, epistaxis Observed to snore while using device: No Current pressure setting perceived as: comfortable On therapy, patient: reports: sleeping better, awakening more refreshed, being more awake and alert during the day, more rested overall. denies: drowsiness while driving Initial [place] Sleepiness Scale score: 16 (in 2019) Current [place] Sleepiness Scale score: 3 Allergies and Home Medications Home medication list reviewed: Yes (no new medications) Review of Systems Review of systems same as previous: Yes (no changes) Physical Exam Heart Rate: 57 O2 Saturation: 98 Height: 5 ft 6 in Weight: 280 lb Body Mass Index: 45.1 BMI Classification: Morbidly Obese Impression and Plan 1. Obstructive Sleep Apnea-Hypopnea Syndrome, very severe, with fair treatment compliance and good apnea control. On CPAP therapy, the patient has better sleep quality and is more rested overall. She has adequate apnea control and her compliance is fair but she has had some issues with COPD exacerbation coughing fits at night that have affected her numbers. Over the last couple weeks she has been able to use it more consistently and she was encouraged to continue this trend. She voiced understanding. Patient's apnea severity and rationale for treatment to reduce apnea, improve sleep quality and reduce cardiovascular and cerebrovascular events was reviewed. I also reviewed the benefit of consistent device use of CPAP for hypertension, gastric reflux and COPD. * Continue auto CPAP pressure at 10-14 cmH2O * Notify me if snoring with mask or feeling that the pressure is too much or too little * Attempt to lose weight * Call this office if any problems using CPAP * Return for follow up in 1 year, or sooner if concerns arise Counseling Topics: Spare mask, Weight loss health impact Visit Type: In Office Time Spent with Patient (minutes): 13 Provider Statement: I spent 100% of the Face to Face Visit with the patient with greater than 50% spent counseling the patient and coordination of care.
== END 2020-09-29 11:09 | disposition home or self-care (01) ==
LOC: SC 11:08
PROVIDERS: ATTEND Nurse Practitioner Family
DX: G47.33 Obstructive sleep apnea (adult) (pediatric) (principal); E66.01 Morbid (severe) obesity due to excess calories; Z68.42 Body mass index [BMI] 45.0-49.9, adult
CPT/HCPCS: 99212; G0463

== ENCOUNTER 2021-11-23 15:14 | Outpatient (CLI) | payer MEDICARE, MEDICAID ==
[2021-11-23 19:56] LABS: BASOPHILS # (AUTO) 0.1 10^3/uL (0.0-0.1); BASOPHILS % (AUTO) 0.7 %; EOSINOPHILS # (AUTO) 0.1 10^3/uL (0.0-0.7); EOSINOPHILS % (AUTO) 2.1 %; HCT - HEMATOCRIT 41.8 % (37.0-47.0); HGB - HEMOGLOBIN 13.9 g/dL (12.0-16.0); LYMPHOCYTES # (AUTO) 1.9 10^3/uL (1.5-3.5); MEAN CORPUSCULAR HEMOGLOBIN 31.1 pg (27.0-31.0); MEAN CORPUSCULAR HGB CONC 33.3 g/dL (32.0-36.0); MEAN CORPUSCULAR VOLUME 93.5 fL (81.0-99.0); MEAN PLATELET VOLUME 11.4 fL (7.9-10.8); MONOCYTES # (AUTO) 0.7 10^3/uL (0.0-1.0); MONOCYTES % (AUTO) 9.9 %; NEUTROPHILS % (AUTO) 59.2 %; PLT - PLATELET COUNT 201 10^3/uL (130-450); RED BLOOD COUNT 4.47 10^6/uL (4.20-5.40); RED CELL DISTRIBUTION WIDTH 13.2 % (12.0-15.0); WHITE BLOOD COUNT 6.8 x10^3/uL (4.8-10.8)
[2021-11-23 20:23] LABS: ALBUMIN 4.6 g/dL (3.2-5.5); ALBUMIN/GLOBULIN RATIO 1.6 (1.0-2.2); ALKALINE PHOSPHATASE 59 IU/L (42-121); ALT ALANINE AMINOTRANSFERASE 34 IU/L (10-60); AST ASPARTATE AMINOTRANSFERASE 21 IU/L (10-42); BILIRUBIN,TOTAL 0.6 mg/dL (0.2-1.0); BUN - BLOOD UREA NITROGEN 22 mg/dL (6-20); CALCIUM 9.9 mg/dL (8.5-10.3); CARBON DIOXIDE - CO2 23 mmol/L (21-32); CHLORIDE 108 mmol/L (101-111); CHOL/HDL RATIO 3.8 (<4.4); CHOLESTEROL 188 mg/dL; CREATININE 0.9 mg/dL (0.4-1.0); GFR - MDRD 62 (>89); GLUCOSE 116 mg/dL (70-100); HDL CHOLESTEROL 49 mg/dL; LDL CHOLESTEROL,CALCULATED 114 mg/dL; LDL/HDL RATIO 2.3 (<4.4); POTASSIUM 4.3 mmol/L (3.5-5.0); SODIUM 142 mmol/L (135-145); TOTAL PROTEIN 7.4 g/dL (6.7-8.2); TRIGLYCERIDES 126 mg/dL; VLDL CHOLESTEROL 25 mg/dL
[2021-11-25 05:11] LABS: HCV AB <0.1 s/co ratio (0.0-0.9)
== END 2021-11-23 15:15 | disposition home or self-care (01) ==
LOC: LAB.S 15:14
PROVIDERS: ATTEND Nurse Practitioner Family
DX: I10 Essential (primary) hypertension (principal); E87.6 Hypokalemia; E55.9 Vitamin D deficiency, unspecified; E66.01 Morbid (severe) obesity due to excess calories; Z11.59 Encounter for screening for other viral diseases; Z13.220 Encounter for screening for lipoid disorders
CPT/HCPCS: 36415; 80053; 80061; 82306; 83721; 84443; 85025; 86803

== ENCOUNTER 2021-12-27 09:45 | Outpatient (CLI) | payer MEDICARE, MEDICAID ==
--- NOTE | 2021-12-27 10:56 | XRAY Report ---
PROCEDURE: Chest 2 View X-Ray INDICATIONS: CHRONIC OBSTRUCTIVE LUNG DISEASE TECHNIQUE: 2 view(s) of the chest. COMPARISON: CXR 01/04/2020, 01/24/2018. CT chest 08/27/2014. FINDINGS: Surgical changes and devices: None. Lungs and pleura: No pleural effusions or pneumothorax. No consolidation. Minimally prominent inters titial markings. Prominent lung volumes. These findings appear similar. Mediastinum: Mediastinal contours are normal. Heart size is at the upper limits of normal. Bones and chest wall: No suspicious bony abnormalities. Soft tissues appear unremarkable. IMPRESSION: No acute cardiopulmonary abnormality. Minimally prominent interstitial markings. This could be due to emphysematous change. Findings appear similar to multiple prior CXRs. Reviewed by: Robbin North MD on 12/27/2021 10:54 AM PDT Approved by: Robbin North MD on 12/27/2021 10:54 AM PDT Station ID: [id number]
--- NOTE | 2021-12-28 07:48 | Mammography Report ---
BILATERAL DIGITAL SCREENING MAMMOGRAM 3D/2D WITH EXAGGERATED CC: 12/27/2021 CLINICAL: Routine screening. Baseline exam. No prior exams were available for comparison. There are scattered fibroglandular elements in both br easts. No significant masses, calcifications, or other findings are seen in either breast. IMPRESSION: NEGATIVE There is no mammographic evidence of malignancy. A 1 year screening mammogram is recommended. This exam was interpreted at Station ID: [id number]. NOTE: For mammograms, a report in lay terms will be sent to the patient. Approximately 15% of breast malignancies will not be visualized mammographically. In the management of a palpable breast mass, a negative mammogram must not discourage biopsy of a clinically suspicious lesion. Electronically Signed By: Raul harvey/meghann:12/27/2021 11:19:07 ACR BI-RADS Category 1: Negative 3341F PARENCHYMAL PATTERN: (A) - The breast(s) demonstrate(s) scattered fibroglandular densities. BI-RADS CATEGORY: (1) - 1 RECOMMENDATION: (ANNUAL) - Recommend routine annual screening mammography. [id number] 1 year screening LATERALITY: (B)
== END 2021-12-27 09:46 | disposition home or self-care (01) ==
LOC: DI.S 09:45
PROVIDERS: ATTEND Nurse Practitioner Family
DX: Z12.31 Encounter for screening mammogram for malignant neoplasm of breast (principal); J44.9 Chronic obstructive pulmonary disease, unspecified

== ENCOUNTER 2023-05-23 13:57 | Outpatient (CLI) | payer MEDICARE, MEDICAID ==
--- NOTE | 2023-05-23 16:11 | XRAY Report ---
PROCEDURE: Shoulder 2 View RT INDICATIONS: PAIN OF RIGHT SHOULDER JOINT TECHNIQUE: 3 views of the shoulder were acquired. COMPARISON: None. FINDINGS: Bones: No fractures or dislocations. No suspicious bony lesions. Visualized ribs appear intact. Mo derate osteoarthritic degenerative changes in the right glenohumeral joint with joint space narrowing and osseous hypertrophy. Soft tissues: No suspicious soft tissue calcifications. The visualized lungs are within normal limi ts. IMPRESSION: Moderate glenohumeral joint osteoarthritis. Reviewed by: Claudia Lemus MD, PhD on 05/23/2023 4:10 PM PST Approved by: Claudia Lemus MD, PhD on 05/23/2023 4:10 PM PST Station ID: [id number]
== END 2023-05-23 13:58 | disposition home or self-care (01) ==
LOC: DI.S 13:57
PROVIDERS: ATTEND Physician Assistant
DX: M19.011 Primary osteoarthritis, right shoulder (principal)

== ENCOUNTER 2023-09-16 08:00 | Outpatient (CLI) | payer MEDICARE, MEDICAID ==
--- NOTE | 2023-09-16 18:54 | XRAY Report ---
PROCEDURE: Shoulder 2 View RT INDICATIONS: RIGHT SHOULDER PAIN TECHNIQUE: 3 views of the shoulder were acquired. COMPARISON: X-ray right shoulder, 05/23/2023. FINDINGS: Bones: No fractures or dislocations. No suspicious bony lesions. There is moderate glenohumeral lesvia int degeneration. Visualized ribs appear intact. Soft tissues: No suspicious soft tissue calcifications. The visualized lungs are within normal limi ts. IMPRESSION: 1. Moderate degenerative joint disease. Reviewed by: Edmar Baltazar MD on 09/16/2023 5:52 PM AKDT Approved by: Edmar Baltazar MD on 09/16/2023 5:52 PM AKDT Station ID: [id number]
== END 2023-09-16 23:59 | disposition home or self-care (01) ==
LOC: DI.WOS 08:00
PROVIDERS: ATTEND Physician Assistant Surgical
DX: M19.011 Primary osteoarthritis, right shoulder (principal)

== ENCOUNTER 2023-12-30 11:19 | Outpatient (CLI) | payer MEDICARE, MEDICAID ==
[2023-12-30 15:35] LABS: ALBUMIN 4.7 g/dL (3.2-5.5); ALBUMIN/GLOBULIN RATIO 1.9 (1.0-2.2); ALKALINE PHOSPHATASE 66 IU/L (42-121); ALT ALANINE AMINOTRANSFERASE 23 IU/L (10-60); AST ASPARTATE AMINOTRANSFERASE 17 IU/L (10-42); BILIRUBIN,TOTAL 0.7 mg/dL (0.2-1.0); BUN - BLOOD UREA NITROGEN 11 mg/dL (6-20); CALCIUM 10.2 mg/dL (8.5-10.3); CARBON DIOXIDE - CO2 20 mmol/L (21-32); CHLORIDE 106 mmol/L (101-111); CHOLESTEROL 182 mg/dL; CREATININE 0.7 mg/dL (0.6-1.3); GFR - MDRD 82 (>89); GLUCOSE 132 mg/dL (74-104); HDL CHOLESTEROL 46 mg/dL; LDL CHOLESTEROL,CALCULATED 113 mg/dL; LDL/HDL RATIO 2.5 (<4.4); SODIUM 136 mmol/L (135-145); TOTAL PROTEIN 7.2 g/dL (6.4-8.9); TRIGLYCERIDES 117 mg/dL (48-352); VLDL CHOLESTEROL 23 mg/dL
[2023-12-30 21:11] LABS: ESTIMATED AVERAGE GLUCOSE 91 mg/dL (70-100); HEMOGLOBIN A1c% 4.8 % (4.27-6.07)
== END 2023-12-30 11:20 | disposition home or self-care (01) ==
LOC: LAB.S 11:19
PROVIDERS: ATTEND Registered Nurse
DX: I10 Essential (primary) hypertension (principal); Z11.59 Encounter for screening for other viral diseases; E78.5 Hyperlipidemia, unspecified; R73.9 Hyperglycemia, unspecified
CPT/HCPCS: 36415; 80053; 80061; 83036; 83721; 86803

== ENCOUNTER 2024-02-13 12:43 | Outpatient (CLI) | payer MEDICARE ==
[2024-02-13] MEDS: ALBUTEROL 1 PUFF INH STA (13:20)
== END 2024-02-13 12:44 | disposition home or self-care (01) ==
LOC: RT 12:43
PROVIDERS: ATTEND Registered Nurse
DX: J44.9 Chronic obstructive pulmonary disease, unspecified (principal)
CPT/HCPCS: 94010; 94060; 94664; 94727